=== PATIENT | male | born 1960 ===

== ENCOUNTER 2024-08-19 06:00 | Day surgery (SDC) | payer BC, SELFPAY ==
[2024-08-06 13:33] VITALS: BMI 33.0
[2024-08-19] VITALS (19 sets, daily range): BP systolic 73–165; BP diastolic 53–98; PULSE 64–143; RESP 10–19; TEMP 35.7–37.3; O2SAT 92–99; BMI 32.3
--- NOTE | 2024-08-19 | DI.RAD.S_ITS ---
PROCEDURE: [id number] W PEL IF PERFORMED INDICATIONS: ANTERIOR TOTAL LEFT HIP TECHNIQUE: AP pelvis with lateral view(s) of the left hip(s). COMPARISON: [facility], CR, XR HIP W PEL IF DONE LT 2V, 08/19/2024, 11:31. FINDINGS: Intraoperative images demonstrate a left hip total arthroplasty in progress. IMPRESSION: Left hip total arthroplasty in progress. Please see the operative report for further details. Dictated by: Isaías Saldaña M.D. on 08/19/2024 at 14:10 Approved by: Isaías Saldaña M.D. on 08/19/2024 at 14:11
--- NOTE | 2024-08-19 06:00 | DI.RAD.S_ITS ---
PROCEDURE: XR HIP W PEL IF DONE LT 2V INDICATIONS: DELONTE TECHNIQUE: AP pelvis and lateral view of the hip acquired. COMPARISON: [facility], CR, XR PELVIS WITH BILATERAL LATERAL HIPS, 04/18/2024, 16:36. [facility], CR, [id number] W PEL IF PERFORMED, 08/19/2024, 9:15. FINDINGS: Bones: Patient is status post left hip arthroplasty, with hardware components in expected positions. The hip joint appears congruent. The visualized bony structures appear intact. Right hip arthroplasty is stable. Soft tissues: Overlying postoperative changes are noted. No suspicious soft tissue densities. IMPRESSION: Expected post-operative appearance of a hip arthroplasty. Dictated by: Natalee Carbajal M.D. on 08/19/2024 at 12:00 Approved by: Natalee Carbajal M.D. on 08/19/2024 at 12:01
[2024-08-19] MEDS: VANCOMYCIN 1,000 MG/200 ML PIGGYBACK 200 MG IV (06:45)
[2024-08-19] MEDS: ACETAMINOPHEN 325 MG TABLET 975 MG PO (06:49)
[2024-08-19] MEDS: LACTATED RINGERS 1,000 ML 42 ML IV ×2 (06:50→12:25)
--- NOTE | 2024-08-19 07:35 | PM.PREOP ---
Pre-operative Note Interval Note History & Physical reviewed/Exam performed by Physician: Yes Changes to H&P: No
--- NOTE | 2024-08-19 07:37 | P.OP_ITS ---
Operative Date/Time/Diagnoses Date of procedure: 08/19/24 Time of procedure: 08:00 Pre-op diagnosis: left hip OA Post-op diagnosis: same Procedure & Clinicians Procedure: Left total hip arthroplasty anterior approach Same procedure as scheduled: Yes Indications: The patient has had progressively worsening left hip pain with radiographic herrera ges consistent with arthritis. Non-operative management has failed and the patient has requested total hip replacement. The risks, benefits and alternatives to surgery were discussed with the patient prior to proceeding. Risks discussed included, but were not limited to, failure to relieve pain, leg length discrepancy, dislocation, stiffness, infection, nerve damage, deep venous thrombosis, pulmonary embolism, stroke, coma, heart attack, permanent paralysis and , as well as the potential need for eventual revision of the prosthetic. Surgeon: Liya Carranza Assistant Professor Of Music: Raulito Dumont Anesthesia Type: General and Spinal Operative Notes Findings: Severe left hip OA, adequate stability Closure Type: primary Specimen(s): none sent Prosthetic devices, grafts, tissues, transplants, or devices: Carranza and nephew R3 size 52, neutral poly liner,one 6.5 mm screw, polar stem size 1 standard offset with collar, 36 x +0 femoral head Estimated Blood Loss (mL): 250 Blood products transfused: none Procedure in detail: The patient was brought to the operating room. Patient was carefully positioned in the supine position. Time-out was performed and antibiotics were given. Anesthesia was induced. He was positioned in the on the table in order to allow hyperextension of the hip. The left lower extremity was prepped and draped in a standard sterile fashion. An anterior left hip incision was made 1 fingerbreadth lateral to the anterior superior iliac spine and extended distally towards the greater trochanter. Dissection was carried out through skin and subcutaneous tissues. Superficial hemostasis was achieved. The fascia over the tensor fascia jose was defined and incised with a knife. Two Allis clamps were used to grasp the fascia. Tensor fascia jose was retracted laterally. A gelpi retractor was placed. Dissection was carried out down along the neck. The circumflex vessels were carefully identified and cauterized with the Aqua Mantis. A PA was used during the procedure and was essential for intraoperative retraction and safe implantation of the components. There was good visualization of the femoral neck. A Cobra was placed superior to the neck and the gluteus fibers were carefully stripped from that superior aspect of the capsule. A 2nd retractor was placed along the inferior aspect of the neck. The rectus insertion along the capsule was partially released. A 3rd retractor that was then gently placed over the rim of the acetabulum under the rectus. Capsule was carefully incised and released from the intertrochanteric line circumferentially superior to the mid sagittal line and inferiorly to the mid sagittal line until the lesser trochanter was palpable. A tag stitch was placed both in the superior and inferior limb of the capsular insertion. Along the acetabulum capsule was also released up to the mid sagittal 12:00 position. A portion of the labrum was resected. A saw was used to perform an osteotomy at the level of the intertrochanteric line and the junction of the superior femoral neck leaving approximately 1 finger breath of residual inferior neck above the lesser trochanter. A 2nd cut was made along the femoral neck at the base of the head and a napkin ring of neck was removed. Corkscrew was placed in the femoral head and the head was removed without difficulty. Retractors were then repositioned around the acetabulum. Residual labrum was resected and additional osteophytes were removed. A reamer that was 4 mm below the templated size was placed by hand in the acetabulum and it was reamed to centralize the acetabulum. It was then reamed up to 2 under the templated size and fluoroscopy was brought in to confirm the position of the reaming and depth of reaming. I reamed 1 under the anticipated size. A trial cup was placed and noted that it was appropriately sized and fluoroscopy confirmed position and depth. The component was open and inserted without difficulty fluoroscopic imaging was used to confirm that the cup had been adequately seated and was well positioned. It was further stabilized with a single screw. Neutral poly liner was placed. The cup was tested and noted to be stable. Attention was then directed to the femur. The femur was gently hyperextended additional capsular release was performed as needed in order to allow adequate visualization of the proximal femur with elevation of the femur. Patient was placed in a hyperextended slightly adducted position with maximum external rotation. Box osteotome was used to check for any residual neck as well as sclerotic bone along the trochanter. He had very dense bone and we went back and forth between the anthology in the polar in order to adequately prepped the femoral canal. [place] pepper was placed in the femur. Additional broaching was performed. Canal finder was used to determine the alignment of the canal and position. Size 1 broach was placed. The canal was then appropriately broached up to the templated size as long as there was adequate stability of the broach and serial advancement of the broach without excessive impingement. Specific attention was directed at avoiding varus attempting to direct the distal aspect of the broach more anteriorly and avoiding excessive anteversion. Trial reducti on showed acceptable range of motion, good stability, no posterior impingement, lutheran of leg length and appropriate lateral shuck. I also hyperflexed the hip and checked that there was no impingement anteriorly and there was good stability with flexion, adduction and internal rotation. A polar stem was selected. Marcaine and Exparel were injected. The stem was placed without difficulty. Repeat trial reduction and x-ray showed acceptable overall position, length, and no evidence of the femoral fracture. Final head was placed. Wound was meticulously irrigated with normal saline. The hip was reduced and additional Exparel and Marcaine were injected. The capsule was closed with interrupted nonabsorbable sutures. The fascia of the tensor was closed with interrupted and running Vicryl. No drain was placed. Any tensor fascia jose muscle that appeared to be contused or injured which was a minimal amount was carefully resected. Capsule around the tensor was injected with Exparel and Marcaine. The skin was closed with barbed stitches for the subcutaneous tissue and skin. We also used surgical glue. The wound was dressed sterilely. Brief Betadine soak was also used and was meticulously irrigated with normal saline. Patient was transferred to recovery room in satisfactory condition. Complications: none Post-operative Condition: stable Disposition: Acute Care Plan for aftercare: The patient will be maintained on a standard total hip replacement protocol with weight bearing as tolerated and anterior hip precautions. The patient will receive Coumadin and sequential compression devices for DVT prophylaxis. The patient will be discharged home when safe for the home environment.
[2024-08-19] MEDS: CEFAZOLIN 2 GM/100 ML PREMIX 100 ML IV ×3 (07:58→23:36)
[2024-08-19] MEDS: TRANEXAMIC ACID 1,000 MG VIAL 1000 MG INJ ×2 (08:10→10:46)
[2024-08-19] MEDS: BUPIVACAINE LIPOSOME 266 MG/20 ML VIAL INJ (08:45)
[2024-08-19] MEDS: BUPIVACAINE 0.25% (PF) 30 ML, EPINEPHrine 0.15 MG INJ (08:45)
--- NOTE | 2024-08-19 08:48 | SUR.OPER ---
Supine on padded [place] table with bilateral legs secured in padded positioning boots and suspended in positioning spars, operative leg in traction per surgeon. Head on one pillow. Arm on non-operative side secured on padded armboard <90 degrees abduction. Arm on operative side padded and resting across chest on gel pad then secured with tape over sheet. Padded perineal post in place per surgeon.
[2024-08-19] MEDS: ONDANSETRON 4 MG/2 ML INJ IV (11:37)
--- NOTE | 2024-08-19 11:53 | EKG_ITS ---
[place] [id number] [place] [id number] Test Date: 2024-08-19 Pat Name: Stevie Sanchez Department: Room: 221 Gender: Male Traffic Expert: Ramiro SANCHEZ : 1960 Requested By: Order Number: [id number] Reading MD: Burt Mott MD Measurements Intervals [place] Rate: 111 P: SD: QRS: -17 QRSD: 94 T: 44 QT: 342 QTc: 465 Interpretive Statements Atrial fibrillation with rapid ventricular response Nonspecific ST abnormality NO PRIOR TRACING Electronically Signed On 08-20-2024 6:48:44 PST by Burt Mott MD
[2024-08-19] MEDS: OXYCODONE IR 5 MG TABLET PO ×2 (11:54→12:16)
[2024-08-19] MEDS: dilTIAZem 25 MG/5 ML SDV 10 MG IV ×2 (11:59→12:04)
[2024-08-19 12:23] LABS: Add Manual Diff / Slide Review NO; Basophils Absolute Auto 0 /uL (0-100); Basophils Percent Auto 0.4 % (0-2); Eosinophils Absolute Auto 0 /uL (0-450); Hematocrit 40.7 % (41-53); Hemoglobin 14.2 g/dL (13.5-17.5); Lymphocytes Absolute Auto 400 /uL (1100-4500); Lymphocytes Percent Auto 3.9 % (25-40); Mean Corpuscular Hemoglobin 32.2 PG (26-34); Mean Corpuscular Volume 91.8 fL (80-100); Monocytes Absolute Auto 100 /uL (0-900); Neutrophils Absolute Auto 10500 /uL (1500-7000); Neutrophils Percent Auto 94.7 % (50-75); Platelet Count 202 X10^3/uL (150-400); Red Blood Cell Count 4.43 X10^6/uL (4.5-5.9); Red Cell Distribution Width 14.1 % (11.6-14.8); White Blood Cell Count 11.1 X10^3/uL (4.5-11.0)
[2024-08-19 12:40] LABS: Alanine Aminotransferase 28 IU/L (<50); Albumin 3.8 g/dL (3.5-5.0); Albumin Globulin Ratio 1.5 (1.0-2.8); Alkaline Phosphatase 80 U/L (38-126); Aspartate Aminotransferase 40 IU/L (17-59); Bilirubin Total 0.8 mg/dL (0.2-1.3); Blood Urea Nitrogen 15 mg/dL (9-20); Calcium 8.7 mg/dL (8.4-10.2); Carbon Dioxide 25 mmol/L (22-32); Chloride 104 mmol/L (98-107); Estimated Glomerular Filt Rate > 60 mL/min (>60); Globulin 2.6 g/dL (1.7-4.1); Glucose 150 mg/dL (80-110); HEMOLYSIS < 15 (0-50); Magnesium 1.8 mg/dL (1.6-2.3); Potassium 3.5 mmol/L (3.4-5.1); Sodium 136 mmol/L (137-145); Total Protein 6.4 g/dL (6.3-8.2)
[2024-08-19 12:46] LABS: INR 1.1 (0.9-1.3); Prothrombin Time 12.4 SECONDS (9.4-12.5)
[2024-08-19 12:52] LABS: Troponin I < 0.012 ng/mL (0.01-0.034)
--- NOTE | 2024-08-19 12:52 | PM.CN ---
History of Present Illness Consult details Date Patient Seen: 08/19/24 Time Patient Seen: 12:15 Chief complaint: Left DELONTE Reason for consult: atrial fibrillation with rapid ventricular response Narrative: This is a 64 year old male with PMH of CHEN, HTN, BPH, afib/flutter s/p PVI and CTI ablation 03/14/2024; DCCV 01/13/23, 07/30/22 on propafenone, diltiazem, and wafarin who follows with Dr. Harding at [facility] who underwent left total hip arthroplasty today with orthopedic surgery. Was called to the PACU today for afib with RVR and chest discomfort. Arrived and patient was in afib RVR with a rate of approximately 120, given 10 mg of diltiazem IV by anesthesia with slight improvement in rate to 110. He complained of palpitations, mild chest discomfort / burning sensation. The discomfort was substernal and non-radiating, consistent with prior episodes of RVR he states. He did take his home diltiazem this morning, along with his propafenone. He has been off of his warfarin prior to surgery. Labs showed a potassium of 3.5, Mg 1.8, and an undetectable troponin. He had received 2L of fluid thus far, 3rd L pending.Labs are otherwise unremarkable. He did convert to sinus rhythm on the monitor shortly after arrival to the hospital floor. Meds Home Medications and Allergies Home Medications Medication Instructions Recorded Confirmed Type acetaminophen 325 mg tablet 650 mg PO DAILY 08/13/24 08/19/24 History (Tylenol) atorvastatin 40 mg tablet 40 mg PO DAILY 08/13/24 08/19/24 History chlorthalidone 25 mg tablet 25 mg PO DAILY 08/13/24 08/19/24 History diltiazem HCl 180 mg 180 mg PO DAILY 08/13/24 08/19/24 History capsule,extended release 24 hr (Cartia XT) lisinopril 40 mg tablet 40 mg PO DAILY 08/13/24 08/19/24 History potassium chloride 20 mEq 40 meq PO DAILY 08/13/24 08/19/24 History tablet,extended release(part/cryst) propafenone 225 mg 225 mg PO Q12H 08/13/24 08/19/24 History capsule,extended release 12 hr terazosin 5 mg capsule 5 mg PO DAILY 08/13/24 08/19/24 History warfarin 5 mg tablet 5 mg PO DAILY 08/13/24 08/19/24 History Allergies Allergy/AdvReac Type Severity Reaction Status Date / Time ketamine AdvReac Hallucinati Verified 08/19/24 06:35 ng Sulfa (Sulfonamide AdvReac Years Verified 08/19/24 06:35 Antibiotics) ago-unsure Review of Systems Review of Systems Narrative: All other systems reviewed with the patient and are negative unless otherwise stated. Exam Vital Signs (past 8 hours): - 08/19/24 06:56 08/19/24 11:20 08/19/24 11:25 Temperature 97.7 F 99.2 F Pulse Rate 76 93 H 111 H Respiratory Rate 16 10 L 12 Blood Pressure 165/87 H 73/53 L 97/69 Pulse Oximetry 96 94 Oxygen Delivery Method Room Air Room Air Room Air 08/19/24 11:30 08/19/24 11:35 08/19/24 11:40 Temperature Pulse Rate 107 H 100 H 98 H Respiratory Rate 12 12 11 L Blood Pressure 91/69 92/68 116/81 Pulse Oximetry 96 98 98 Oxygen Delivery Method Room Air Room Air Room Air 08/19/24 11:45 08/19/24 11:54 08/19/24 12:00 Temperature Pulse Rate 120 H 120 H 129 H Respiratory Rate 12 12 19 Blood Pressure 112/80 119/70 103/83 Pulse Oximetry 98 96 94 Oxygen Delivery Method Room Air Room Air Room Air 08/19/24 12:04 08/19/24 12:08 08/19/24 12:18 Temperature Pulse Rate 120 H 98 H 71 Respiratory Rate 16 10 L Blood Pressure 103/83 105/78 119/95 H Pulse Oximetry 95 99 Oxygen Delivery Method Room Air Room Air 08/19/24 12:22 Temperature Pulse Rate 86 Respiratory Rate 16 Blood Pressure 109/85 Pulse Oximetry 99 Oxygen Delivery Method Room Air Oxygen Delivery Method Room Air Narrative Exam Narrative: General:? Patient is well developed and well nourished, in no distress at this time. HEENT:? Normocephalic, atraumatic, extraocular muscles intact, oral pharynx is clear and mucous membranes are moist. Neck: supple and symmetric, trachea is midline, no cervical adenopathy. Negative for JVD Chest:? Normal AP diameter and contour without kyphoscoliosis, no tachypnea, equal chest rise bilaterally. Lungs:? CTA b/l no wheezing rhonchi or rales. Cardio:?initially tachycardic, irregularly irregular then RRR no m/r/g. Abdomen: S NT ND. Extremities: No edema or joint effusions. No cyanosis or clubbing. Neuro:? Alert and orientated x3,? sensation to touch intact in all extremities, no gross deficits noted of cranial nerves. Objective ECG Impression: Atrial fibrillation with rapid ventricular response, nonspecific ST depression in lead V4 only. Labs 08/19/24 12:07 08/19/24 12:07 Labs: Laboratory Results - last 24 hr 08/19/24 12:07 WBC 11.1 H RBC 4.43 L Hgb 14.2 Hct 40.7 L MCV 91.8 MCH 32.2 MCHC 35.0 RDW 14.1 Plt Count 202 Neut % (Auto) 94.7 H Lymph % (Auto) 3.9 L [place] % (Auto) 1.0 L Eos % (Auto) 0.0 L Baso % (Auto) 0.4 Neut # (Auto) 21029 H Lymph # (Auto) 400 L [place] # (Auto) 100 Eos # (Auto) 0 Baso # (Auto) 0 PT 12.4 INR 1.1 Sodium 136 L Potassium 3.5 Chloride 104 Carbon Dioxide 25 BUN 15 Creatinine 0.79 Estimated GFR > 60 BUN/Creatinine Ratio 19.0 Glucose 150 H Calcium 8.7 Magnesium 1.8 Total Bilirubin 0.8 AST 40 ALT 28 Alkaline Phosphatase 80 Total Protein 6.4 Albumin 3.8 Globulin 2.6 Albumin/Globulin Ratio 1.5 PFSH Medical History (Updated 08/13/24 @ 14:00 by Julianna Diego RN) Normal cardiac ejection fraction Heart murmur A-fib (2015) History of anticoagulant therapy CHEN on CPAP History of chest pain History of cardioversion (07/30/22) Paroxysmal atrial fibrillation BPH (benign prostatic hyperplasia) HTN (hypertension) Surgical History (Updated 08/06/24 @ 13:43 by Rand Cerrato RN) Hx of tonsillectomy Hx of colonoscopy History of lumbar laminectomy (1984) History of total right hip replacement (09/2011) History of carpal tunnel surgery of left wrist (2010) H/O cardiac radiofrequency ablation (03/14/24) Social History household members: children Tobacco & Substance Use Smoking Status: Never smoker alcohol intake: current Assessment & Plan Assessment & Plan narrative: 1. Paroxysmal atrial fibrillation with RVR, improved - continue home diltiazem 180 mg daily and propafenone 225 mg BID for now - monitor with tele, converted to sinus rhythm shortly after arrival to hospital floor. - ACS ruled out, negative troponin, improvement in symptoms with rate control, EKG with non-specific changes. - Previous stress testing 01/02/23 was normal at [facility]. Last TTE 01/07 was EF 60-65% with no valvular abnormalities. - replete Mg and potassium, goal Mg >2 and potassium level of 4. Ordered 60 of potassium repletion and 2g Mg repletion now. - coumadin per pharmacy once okay per orthopedics team. - suspect combination of volume loss from surgery, and electrolyte abnormalities. now s/p 3L of fluid boluses with improvement. 2. CHEN - management with respiratory therapy. 3. HTN - continue home medications of chlorthalidone, diltiazem, and lisinopril. 4 HLD - continue home atorvastatin 40 mg. 5. Hypomagnesemia, and hypokalemia - repleted as noted above - continue home potassium 40 meQ daily. 6. S/p L total arthroplasty - PT/OT okay to start Code: Full, surrogate is patient's daughter DVT: per primary service, resume patient's warfarin per orthopedics team I have utilized all available immediate resources to obtain, update, or review the patient's current medications. Dispo: stable for hospital floor, medicine will continue to follow along at this time. Additional history obtained via discussions with the orthopedic provider, anesthesiologist, and PACU staff. These discussions contributed to the creation of the above assessment and plan. I have reviewed patient's presenting documentation, labs, and imaging personally. Time-Based Coding :: [TOTAL MINUTES] spent with patient and on the chart (including review of chart, obtaining history, exam, reviewing outside data, placing orders, documenting exam and treatment plan, and counseling patient) on [DATE].
[2024-08-19] MEDS: MAGNESIUM SULFATE 2 GM/50 ML PIGGYBACK IV (13:31)
[2024-08-19] MEDS: ACETAMINOPHEN 325 MG TABLET 650 MG PO (13:31)
[2024-08-19] MEDS: LACTATED RINGERS 1,000 ML 100 ML IV ×2 (13:31→18:31)
[2024-08-19] MEDS: POTASSIUM CHLORIDE 20 MEQ TAB 60 MEQ PO (13:31)
--- NOTE | 2024-08-19 15:32 | OT.IP.EVAL ---
Current Diagnoses Unilateral primary osteoarthritis, left hip (08/19/24) Surgery Performed Operation Date: 08/19/24 07:45 Actual Procedures p Total Hip Arthroplasty/Anterior Approach(Left) - Liya Carranza MD Past Medical History (Last Updated 08/13/24 @ 14:00 by Julianna Diego, ROMERO) A-fib (2015) BPH (benign prostatic hyperplasia) Heart murmur History of anticoagulant therapy History of cardioversion (07/30/22) History of chest pain HTN (hypertension) Normal cardiac ejection fraction CHEN on CPAP Paroxysmal atrial fibrillation Surgical History (Last Updated 08/06/24 @ 13:43 by Rand Cerrato, ROMERO) H/O cardiac radiofrequency ablation (03/14/24) History of carpal tunnel surgery of left wrist (2010) History of lumbar laminectomy (1984) 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 Activities of Daily Living and IADL's Pt had pain but able to do ADl and IADl needs. Prior Functional Level (Other details) Pt's daughter in the room, his son to assist pt at home. Social History Household Members children Living Arrangements House Number of Floors (Floors) One Floor Number of Stairs To Enter/Railing? 3 steps with left hand rail to enter. Home Environment Standard Height Toilet,Tub/ Shower Home Equipment Front Wheel Walker,Straight Cane,Crutches,Hand Held Shower ,Dietetics Professor M2 OT-IP Current Condition Start: 08/19/24 15:32 Freq: Status: Active Protocol: Document 08/19/24 15:33 [facility] (Rec: 08/19/24 15:44 [facility] [id number]) Occupational Therapy Current Condition Current Condition Evaluation Date 08/19/24 Treatment Diagnosis S/P L DELONTE anterior approach Diagnosis Onset Date 08/19/24 Post Operative Precautions Anterior Hip Precautions No excessive Hip Extension and Hip External Rotation Other Precautions M3 OT- IP Subjective and Pain Start: 08/19/24 15:32 Freq: Status: Active Protocol: Document 08/19/24 15:33 [facility] (Rec: 08/19/24 15:44 [facility] [id number]) OT- Subjective Occupational Therapy Visit Type Type Initial Evaluation Visit Start Time 15:05 Visit Stop Time 15:32 Occupational Therapy Visit Comments Patient Comments Pt agreed to get up. Patient/Caregiver Goals TO go home. OT Pain Assessment Pain When Pain Assessed At Rest Pain Present Pain Present Pain Reported Location left hip Intensity 4 Scale Used Numeric (0 - 10) M4 OT- IP ADL's Start: 08/19/24 15:32 Freq: Status: Active Protocol: Document 08/19/24 15:33 [facility] (Rec: 08/19/24 15:44 [facility] [id number]) OT [id number] Comments OT Self-Feeding Comments Not performed. OT ADL-Grooming Comments OT Grooming Comments Not performed. OT ADL-Oral Care Comments Oral Care Comments NOt performed. OT ADL-Dressing General Eval Lower Body Dressing Ability Maximum Assistance Comments OT Dressing Comments Showed pt LB dressing equipment and the importance on not crossing his LLE over into external rotation for clothing management needs. OT ADL-Toileting Comments OT Toileting Comments Suggested use of urinal at night. OT ADL-Bathing Comments OT Bathing Comments Best to get a tub bench for home use. M5 OT- IP IADL's Start: 08/19/24 15:32 Freq: Status: Active Protocol: Document 08/19/24 15:33 [facility] (Rec: 08/19/24 15:44 [facility] [id number]) OT-Instrumental Activities of Daily Living Home Safety Awareness Awareness of Need for Assistance at Home Good Awareness Ability to Problem Solve Emergency Able to Problem Solve Situations Home Safety Comments Pt has supportive family to assist pt. Best to have assist for needs at this time. Meal Preparation Meal Preparation Caregiver Provides Assist Healthcare Applications Analyst Healthcare Applications Analyst Caregiver Provides Assist M6 OT- IP Functional Cognition Start: 08/19/24 15:32 Freq: Status: Active Protocol: Document 08/19/24 15:33 [facility] (Rec: 08/19/24 15:44 [facility] [id number]) Cognitive Factors Limiting Selfcare Function Cognitive Ability Level of Alertness Alert Patient Orientation Name,Place,Situation Attention Span Ability Capable of Focused Attention, Capable of Sustained Attention Ability to Follow Commands Able to Follow One Step Commands Cognitive Comments Cognitive Assessment Comments Pt able to follow cues for ADL and mobility needs at this time. OT- Vision and Hearing OT- Hearing Assessment OT- Hearing Assessment WFL OT- Vision Assessment Visual Acuity Glasses All The Time Visual Attentiveness WFL Occular Pursuits WFL M7 OT- IP Mobility and Balance Start: 08/19/24 15:32 Freq: Status: Active Protocol: Document 08/19/24 15:33 [facility] (Rec: 08/19/24 15:44 [facility] [id number]) OT- Bed Mobility Assessment Supine to Sit Supine to Sit Assist Contact Guard Assistance Scooting Scooting to Edge of Bed Standby Assistance OT-Transfer Assessment Sit to and From Stand Sit to and from Stand Contact Guard Assistance Transfers Transfer Ability Contact Guard Assistance Technique Transfer Destination Bed,Chair Transfer Technique Stand Step Pivot Devices Transfer Assistive Devices Gait Belt,Front Wheeled Walker Comments Mobility Comments BP supine 137/75, sitting 105/ 66 feeling a little light headed, standing 87/52, after transfer to recliner 89/52 and sitting with legs up 132/67. Pt wanting to get out on the right side of the bed as that is how it is set at home. CGA to help get his trunk upright. CGA to stand and from the transfer. VC to be sure to keep his LLE tight. Pt just transfer only at this time due to low BP.Pt states good awareness to call for assist if having to get up. OT- Balance Assessment Sitting Balance and Reactions Static Sitting Balance Ability Good Dynamic Sitting Balance Ability Good Standing Balance and Reactions Static Standing Balance Ability Fair Dynamic Standing Balance Ability Fair M8 OT- IP Objective Assessments Start: 08/19/24 15:32 Freq: Status: Active Protocol: Document 08/19/24 15:33 [facility] (Rec: 08/19/24 15:44 [facility] [id number]) OT Gross Range of Motion Upper Extremity Range of Motion Assessment Within Functional Limits OT Strength Upper Extremity Strength Assessment Within Functional Limits M9 OT- IP Assessment and Plan Start: 08/19/24 15:32 Freq: Status: Active Protocol: Document 08/19/24 15:33 [facility] (Rec: 08/19/24 15:44 [facility] [id number]) OT Summary Assessment and Plan Potential Rehabilitation Potential Excellent Analytic Complexity at Evaluation Low Summary OT Impairments Pain,Balance,Functional Mobility,Grooming,Dressing, Toileting,Bathing,Toilet Transfers,Shower Transfers Progress Towards Goals Slow Progress due to Pain,Slow Progress due to Medical Issues Assessment Summary Pt low complexity and main barriers are steps, pain , and having low BP and complaining of begin light headed when sitting and standing at this time. Pt looking to go home with assist when medically stable. Pt will benefit from a tub bench and sock aid. Goals Self-Feeding Goal Independent Grooming Goal Independent Dressing Goal Independent,Dietetics Professor,Sock Aid Toileting Goal Independent Bathing Goal Standby Assistance Toilet Transfer Goal Independent Shower Transfer Goal Standby Assistance Days to Meet Goals 7 Frequency of Treatment Frequency Of Treatment Once a Day Treatment Plan OT Treatment Plan ADL Training,Functional Mobility,Patient/Family Education,Discharge Planning Other Treatment Recommendations and Next Standing ADL's Treatment Focus Discharge Recommendations OT Discharge Recommendations Home with 09/04 Assist Available,Outpatient PT Home Equipment Needs tub bench, sock aid Transportation Needs at Discharge Private Vehicle
--- NOTE | 2024-08-19 15:45 | PT.IIE ---
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) Hx of colonoscopy Hx of tonsillectomy Medical History (Last Updated 08/13/24 @ 14:00 by Julianna Diego, ROMERO) A-fib (2015) BPH (benign prostatic hyperplasia) Heart murmur History of anticoagulant therapy History of cardioversion (07/30/22) History of chest pain HTN (hypertension) Normal cardiac ejection fraction CHEN on CPAP Paroxysmal atrial fibrillation Physical Therapy Inpatient Evaluation/Re-Eval M1 PT/OT-IP Prior Functional Status Start: 08/19/24 16:42 Freq: NEEDED Status: Active Protocol: Document 08/19/24 15:45 [facility] (Rec: 08/19/24 16:54 [facility] [id number]) Medical Review Prior Functional Status Medical History Reviewed Yes Communication able to make needs known Mobility and Gait pt stated that he was modified independent with all mobilities and ambulation usually without AD; initially uses a SPC for ambulation in the morning due to hip pain but after a few feet of walking was able to ambulation without AD Activities of Daily Living and IADL's per OT note: Pt had pain but able to do ADl and IADl needs. Social History Household Members children Living Arrangements House Number of Floors (Floors) One Floor Number of Stairs To Enter/Railing? 3 steps with left hand rail to enter Home Environment Standard Height Toilet,Tub/ Shower Home Equipment Front Wheel Walker,Straight Cane,Crutches,Hand Held Shower ,Peer Financial Counselor Additional Social History Comment pt lives with his son who can assist when available( son works); pt stated that his GF will stay with him tomorrow when he goes home M2 PT-IP Current Condition Start: 08/19/24 16:42 Freq: NEEDED Status: Active Protocol: Document 08/19/24 15:45 [facility] (Rec: 08/19/24 16:54 AB [id number]) Physical Therapy Current Condition Current Condition Evaluation Date 08/19/24 Treatment Diagnosis s/p L DELONTE anterior; difficulty in walking Onset Date 08/19/24 M3 PT-IP Subjective Start: 08/19/24 16:42 Freq: NEEDED Status: Active Protocol: Document 08/19/24 15:45 [facility] (Rec: 08/19/24 16:54 AB [id number]) Subjective Physical Therapy Visit Type Type Initial Evaluation Visit Start Time 15:45 Visit Stop Time 16:25 Number of DATA MANAGEMENT CONSULTANT Visits 0 Physical Therapy Visit Comments Patient Comments agreeable to do PT Therapy Pain Assessment Pain When Pain Assessed At Rest Pain Present Pain Present Pain Reported Location left hip Intensity 3 Scale Used Numeric (0 - 10) Pain Behaviors Guarding Pain Management Techniques Apply Cold,Distraction, Modification of Treatment,Re- positioning,Timing of Activity with Medications M4 PT-IP Mobility and Gait Start: 08/19/24 16:42 Freq: NEEDED Status: Active Protocol: Document 08/19/24 15:45 [facility] (Rec: 08/19/24 16:54 [facility] [id number]) PT-Bed Mobility Assessment Rolling Level of Assist Standby Assistance Supine to Sit Supine to Sit Standby Assistance Sit to Supine Sit to Supine Standby Assistance PT-Transfer Assessment Sit to and From Stand Sit to and from Stand Contact Guard Assistance,1 Person Assistance,Use of Upper Extremities Equipment Transfer Assistive Device Gait Belt,Front Wheeled Walker Orthotic/Prosthetic Devices or Brace: No Transfers Transfer Destination Bed,Chair Transfer Technique ambulated Transfer Ability Level of Assist Contact Guard Assistance,1 Person Assistance,Use of Upper Extremities Comments Mobility Comments pt sitting on the chair and agreed to do PT. obtained PLOF and home set up. educated pt on hip precautions. BP sittin/69. pt completed sit to stand CGA and ambulated in room using FWW cGA ~ 30 ft. no c/o dizziness/ lightheadedness. pt sat on EOB. BP checked: 126/68. completed bed mobility sit <> supine SBA. pt completed sit to stand from EOB CGA and step transfer back to chair using FWW CGA. positioned pt on the chair. call light and table placed within reach. Gait Assessment Gait Gait Assistance Required: Contact Guard Assist Distance (Feet) 30 Able to Maintain Weight Bearing Status Yes During Gait Assistive Devices Assistive Device Gait Belt,Front Wheeled Walker Orthotic/Prosthetic Devices or Brace: No Gait Deviations General Gait Pattern Decreased Stride Length, Decreased Feet Clearance Factors Limiting Gait Function Factors Limiting Gait Function Decreased Activity Tolerance, Decreased Strength,Limited Range of Motion,Pain,Poor Balance,Poor Safety Awareness PT-Balance Assessment Sitting Balance and Reactions Static Sitting Balance Ability Normal Dynamic Sitting Balance Ability Good Standing Balance and Reactions Static Standing Balance Ability Good Dynamic Standing Balance Ability Fair Device Used FWW M5 PT-IP Objective Assessments Start: 08/19/24 16:42 Freq: NEEDED Status: Active Protocol: Document 08/19/24 15:45 [facility] (Rec: 08/19/24 16:54 [facility] [id number]) Orientation Orientation/Cognition Level of Alertness Alert Orientation Name,Place,Situation Language Function Ability Hard of Hearing Safety Awareness Decreased Safety Awareness Memory Description No Deficits Noted Gross Range of Motion Lower Extremity ROM Assessment Within Functional Limits Strength Lower Extremity Strength Assessment Left Impaired Hip 3+/5 Knee 4/5 Coordination Assessment Gross Coordination Gross Coordination WNL Sensation Assessment Sensation Gross Sensation WNL Muscle Tone Muscle Tone WNL Yes M6 PT-IP Treatment Start: 08/19/24 16:42 Freq: NEEDED Status: Active Protocol: Document 08/19/24 15:45 [facility] (Rec: 08/19/24 16:54 [facility] [id number]) Physical Therapy Treatment Education Education Provided Precautions,Weight Bearing Status,Post-Op Packet,Safety M7 PT-IP Assessment and Plan Start: 08/19/24 16:42 Freq: NEEDED Status: Active Protocol: Document 08/19/24 15:45 [facility] (Rec: 08/19/24 16:54 AB [id number]) PT Summary Assessment and Plan Potential Rehabilitation Potential Fair Status of Condition at Evaluation Evolving Summary Impairments Pain,ROM,Strength,Balance, Coordination,Sensation,Tone, Cognition,Bed Mobility, Transfers,Gait,Activity Tolerance Assessment Summary pt is a 64 y/o M s/p L DELONTE anterior approach POD 0. pt requiring CGA with mobility using fWW. pt plans to go home and GF with initially assist pt and then afterwards, will have his son assist him if needed. pt has outpt PT set up. will conduct caregiver training when appropriate as well as stair climbing training. Goals Bed Mobility Goal Independent Transfer Goal Independent,Front Wheeled Walker Gait Goal Independent,Front Wheel Walker Gait Distance 200 Other Goals up/down 3 steps L rail ascending SBA Days to Meet Goals 5 Frequency of Treatment Frequency Of Treatment Twice a Day Treatment Plan Physical Therapy Treatment Plan Bed Mobility Training,Transfer Training,Gait Training, Therapeutic Exercise,Balance Retraining,Post Op Education, Discharge Planning,Hot or Cold Pack,Neuromuscular Re-ed, Coordination Retraining,Manual Therapy Precautions Anterior Hip Precautions No Hip Extension,No Hip External Rotation Weight Bearing Status Weight Bearing Status Weight Bear as Tolerated Allowed Weight Bearing Amount (enter % LLE WBAT or #) (%) Recommendations To Nursing Amount of Assist Needed 1 Person Assist Discharge Recommendations PT Discharge Recommendations Home with Assistance, Outpatient PT Transportation Needs at Discharge Private Vehicle
--- NOTE | 2024-08-19 15:55 | PT.IIE ---
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) Hx of colonoscopy Hx of tonsillectomy Medical History (Last Updated 08/13/24 @ 14:00 by Julianna Diego, ROMERO) A-fib (2015) BPH (benign prostatic hyperplasia) Heart murmur History of anticoagulant therapy History of cardioversion (07/30/22) History of chest pain HTN (hypertension) Normal cardiac ejection fraction CHEN on CPAP Paroxysmal atrial fibrillation Physical Therapy Inpatient Evaluation/Re-Eval M1 PT/OT-IP Prior Functional Status Start: 08/19/24 16:42 Freq: NEEDED Status: Active Protocol: Document 08/19/24 15:55 [facility] (Rec: 08/19/24 16:54 AB [id number]) Medical Review Prior Functional Status Medical History Reviewed Yes Communication able to make needs known Mobility and Gait pt stated that he was modified independent with all mobilities and ambulation usually without AD; initially uses a SPC for ambulation in the morning due to hip pain but after a few feet of walking was able to ambulation without AD Activities of Daily Living and IADL's per OT note: Pt had pain but able to do ADl and IADl needs. Social History Household Members children Living Arrangements House Number of Floors (Floors) One Floor Number of Stairs To Enter/Railing? 3 steps with left hand rail to enter Home Environment Standard Height Toilet,Tub/ Shower Home Equipment Front Wheel Walker,Straight Cane,Crutches,Hand Held Shower ,Business Intelligence Analyst Additional Social History Comment pt lives with his son who can assist when available( son works); pt stated that his GF will stay with him tomorrow when he goes home M2 PT-IP Current Condition Start: 08/19/24 16:42 Freq: NEEDED Status: Active Protocol: Document 08/19/24 15:55 [facility] (Rec: 08/19/24 16:54 AB [id number]) Physical Therapy Current Condition Current Condition Evaluation Date 08/19/24 Treatment Diagnosis s/p L DELONTE anterior; difficulty in walking Onset Date 08/19/24 M3 PT-IP Subjective Start: 08/19/24 16:42 Freq: NEEDED Status: Active Protocol: Document 08/19/24 15:55 [facility] (Rec: 08/19/24 16:54 AB [id number]) Subjective Physical Therapy Visit Type Type Initial Evaluation Visit Start Time 15:55 Visit Stop Time 16:30 Number of WARP TENSION TESTER Visits 0 Physical Therapy Visit Comments Patient Comments agreeable to do PT Therapy Pain Assessment Pain When Pain Assessed At Rest Pain Present Pain Present Pain Reported Location left hip Intensity 3 Scale Used Numeric (0 - 10) Pain Behaviors Guarding Pain Management Techniques Apply Cold,Distraction, Modification of Treatment,Re- positioning,Timing of Activity with Medications M4 PT-IP Mobility and Gait Start: 08/19/24 16:42 Freq: NEEDED Status: Active Protocol: Document 08/19/24 15:55 [facility] (Rec: 08/19/24 16:54 AB [id number]) PT-Bed Mobility Assessment Rolling Level of Assist Standby Assistance Supine to Sit Supine to Sit Standby Assistance Sit to Supine Sit to Supine Standby Assistance PT-Transfer Assessment Sit to and From Stand Sit to and from Stand Contact Guard Assistance,1 Person Assistance,Use of Upper Extremities Equipment Transfer Assistive Device Gait Belt,Front Wheeled Walker Orthotic/Prosthetic Devices or Brace: No Transfers Transfer Destination Bed,Chair Transfer Technique ambulated Transfer Ability Level of Assist Contact Guard Assistance,1 Person Assistance,Use of Upper Extremities Comments Mobility Comments pt sitting on the chair and agreed to do PT. obtained PLOF and home set up. educated pt on hip precautions. BP sittin/69. pt completed sit to stand CGA and ambulated in room using FWW cGA ~ 30 ft. no c/o dizziness/ lightheadedness. pt sat on EOB. BP checked: 126/68. completed bed mobility sit <> supine SBA. pt completed sit to stand from EOB CGA and step transfer back to chair using FWW CGA. positioned pt on the chair. call light and table placed within reach. Gait Assessment Gait Gait Assistance Required: Contact Guard Assist Distance (Feet) 30 Able to Maintain Weight Bearing Status Yes During Gait Assistive Devices Assistive Device Gait Belt,Front Wheeled Walker Orthotic/Prosthetic Devices or Brace: No Gait Deviations General Gait Pattern Decreased Stride Length, Decreased Feet Clearance Factors Limiting Gait Function Factors Limiting Gait Function Decreased Activity Tolerance, Decreased Strength,Limited Range of Motion,Pain,Poor Balance,Poor Safety Awareness PT-Balance Assessment Sitting Balance and Reactions Static Sitting Balance Ability Normal Dynamic Sitting Balance Ability Good Standing Balance and Reactions Static Standing Balance Ability Good Dynamic Standing Balance Ability Fair Device Used FWW M5 PT-IP Objective Assessments Start: 08/19/24 16:42 Freq: NEEDED Status: Active Protocol: Document 08/19/24 15:55 [facility] (Rec: 08/19/24 16:54 AB [id number]) Orientation Orientation/Cognition Level of Alertness Alert Orientation Name,Place,Situation Language Function Ability Hard of Hearing Safety Awareness Decreased Safety Awareness Memory Description No Deficits Noted Gross Range of Motion Lower Extremity ROM Assessment Within Functional Limits Strength Lower Extremity Strength Assessment Left Impaired Hip 3+/5 Knee 4/5 Coordination Assessment Gross Coordination Gross Coordination WNL Sensation Assessment Sensation Gross Sensation WNL Muscle Tone Muscle Tone WNL Yes M6 PT-IP Treatment Start: 08/19/24 16:42 Freq: NEEDED Status: Active Protocol: Document 08/19/24 15:55 [facility] (Rec: 08/19/24 16:54 AB [id number]) Physical Therapy Treatment Education Education Provided Precautions,Weight Bearing Status,Post-Op Packet,Safety M7 PT-IP Assessment and Plan Start: 08/19/24 16:42 Freq: NEEDED Status: Active Protocol: Document 08/19/24 15:55 [facility] (Rec: 08/19/24 16:54 AB [id number]) PT Summary Assessment and Plan Potential Rehabilitation Potential Fair Status of Condition at Evaluation Evolving Summary Impairments Pain,ROM,Strength,Balance, Coordination,Sensation,Tone, Cognition,Bed Mobility, Transfers,Gait,Activity Tolerance Assessment Summary pt is a 64 y/o M s/p L DELONTE anterior approach POD 0. pt requiring CGA with mobility using fWW. pt plans to go home and GF with initially assist pt and then afterwards, will have his son assist him if needed. pt has outpt PT set up. will conduct caregiver training when appropriate as well as stair climbing training. Goals Bed Mobility Goal Independent Transfer Goal Independent,Front Wheeled Walker Gait Goal Independent,Front Wheel Walker Gait Distance 200 Other Goals up/down 3 steps L rail ascending SBA Days to Meet Goals 5 Frequency of Treatment Frequency Of Treatment Twice a Day Treatment Plan Physical Therapy Treatment Plan Bed Mobility Training,Transfer Training,Gait Training, Therapeutic Exercise,Balance Retraining,Post Op Education, Discharge Planning,Hot or Cold Pack,Neuromuscular Re-ed, Coordination Retraining,Manual Therapy Precautions Anterior Hip Precautions No Hip Extension,No Hip External Rotation Weight Bearing Status Weight Bearing Status Weight Bear as Tolerated Allowed Weight Bearing Amount (enter % LLE WBAT or #) (%) Recommendations To Nursing Amount of Assist Needed 1 Person Assist Discharge Recommendations PT Discharge Recommendations Home with Assistance, Outpatient PT Transportation Needs at Discharge Private Vehicle
[2024-08-19] MEDS: OXYCODONE IR 10 MG TABLET PO (18:37)
[2024-08-19] MEDS: PROPAFENONE 225 MG 225 EACH PO (21:53)
[2024-08-19] MEDS: DOCUSATE 100 MG CAPSULE PO (21:53)
[2024-08-20 00:35] VITALS: BP 135/71; PULSE 62; RESP 15; TEMP 36.2; O2SAT 97
[2024-08-20] MEDS: ACETAMINOPHEN 325 MG TABLET 650 MG PO ×2 (00:48→10:46)
[2024-08-20 05:58] LABS: BUN Creatinine Ratio 17.6 (6-22); Blood Urea Nitrogen 15 mg/dL (9-20); Calcium 8.5 mg/dL (8.4-10.2); Carbon Dioxide 28 mmol/L (22-32); Chloride 103 mmol/L (98-107); Estimated Glomerular Filt Rate > 60 mL/min (>60); Glucose 155 mg/dL (80-110); HEMOLYSIS < 15 (0-50); Potassium 3.7 mmol/L (3.4-5.1); Sodium 135 mmol/L (137-145)
--- NOTE | 2024-08-20 07:33 | PM.PN.1 ---
Subjective Subjective Interval history: Summary: Chief complaint: Left DELONTE Reason for consult: atrial fibrillation with rapid ventricular response Narrative: This is a 64 year old male with PMH of CHEN, HTN, BPH, afib/flutter s/p PVI and CTI ablation 03/14/2024; DCCV 01/13/23, 07/30/22 on propafenone, diltiazem, and wafarin who follows with Dr. Harding at [facility] who underwent left total hip arthroplasty today with orthopedic surgery. Was called to the PACU today for afib with RVR and chest discomfort. Arrived and patient was in afib RVR with a rate of approximately 120, given 10 mg of diltiazem IV by anesthesia with slight improvement in rate to 110. He complained of palpitations, mild chest discomfort / burning sensation. The discomfort was substernal and non-radiating, consistent with prior episodes of RVR he states. He did take his home diltiazem this morning, along with his propafenone. He has been off of his warfarin prior to surgery. Labs showed a potassium of 3.5, Mg 1.8, and an undetectable troponin. He had received 2L of fluid thus far, 3rd L pending.Labs are otherwise unremarkable. He did convert to sinus rhythm on the monitor shortly after arrival to the hospital floor. S: No racing heart, dyspnea, or chest pain. Exam Vital Signs (past 8 hours): - 08/20/24 00:35 Temperature 97.2 F L Pulse Rate 62 Respiratory Rate 15 Blood Pressure 135/71 Pulse Oximetry 97 Oxygen Delivery Method Room Air Oxygen Flow Rate 0 Narrative Exam Narrative: NAD, alert and oriented. Fluent speech. Lungs are clear, normal rate and effort. Heart is regular, no murmur gallop or rub. Abdomen is soft, non distended. Extremities are free of edema. Objective Labs 08/20/24 04:39 08/20/24 04:39 Labs: Laboratory Results - last 24 hr 08/19/24 08/20/24 12:07 04:39 WBC 11.1 H RBC 4.43 L Hgb 14.2 13.0 L Hct 40.7 L 37.0 L MCV 91.8 MCH 32.2 MCHC 35.0 RDW 14.1 Plt Count 202 Neut % (Auto) 94.7 H Lymph % (Auto) 3.9 L [place] % (Auto) 1.0 L Eos % (Auto) 0.0 L Baso % (Auto) 0.4 Neut # (Auto) 12885 H Lymph # (Auto) 400 L [place] # (Auto) 100 Eos # (Auto) 0 Baso # (Auto) 0 PT 12.4 INR 1.1 Sodium 136 L 135 L Potassium 3.5 3.7 Chloride 104 103 Carbon Dioxide 25 28 BUN 15 15 Creatinine 0.79 0.85 Estimated GFR > 60 > 60 BUN/Creatinine Ratio 19.0 17.6 Glucose 150 H 155 H Calcium 8.7 8.5 Magnesium 1.8 2.0 Total Bilirubin 0.8 AST 40 ALT 28 Alkaline Phosphatase 80 Troponin I < 0.012 Total Protein 6.4 Albumin 3.8 Globulin 2.6 Albumin/Globulin Ratio 1.5 [facility] Medical History Normal cardiac ejection fraction Heart murmur A-fib (2015) History of anticoagulant therapy CHEN on CPAP History of chest pain History of cardioversion (07/30/22) Paroxysmal atrial fibrillation BPH (benign prostatic hyperplasia) HTN (hypertension) Surgical History Hx of tonsillectomy Hx of colonoscopy History of lumbar laminectomy (1984) History of total right hip replacement (09/2011) History of carpal tunnel surgery of left wrist (2010) H/O cardiac radiofrequency ablation (03/14/24) Social History household members: children Smoking Status: Never smoker alcohol intake: current Assessment & Plan Assessment & Plan narrative: 1. Paroxysmal atrial fibrillation with RVR, improved. . - continue home diltiazem 180 mg daily and propafenone 225 mg BID for now - monitor with tele, converted to sinus rhythm shortly after arrival to hospital floor. - ACS ruled out, negative troponin, improvement in symptoms with rate control, EKG with non-specific changes. - Previous stress testing 01/02/23 was normal at [facility]. Last TTE 01/07 was EF 60-65% with no valvular abnormalities. - replete Mg and potassium, goal Mg >2 and potassium level of 4. Ordered 60 of potassium repletion and 2g Mg repletion now. - coumadin per pharmacy once okay per orthopedics team. - suspect combination of volume loss from surgery, and electrolyte abnormalities. now s/p 3L of fluid boluses with improvement. 2. CHEN, present on admission and stable. - management with respiratory therapy. 3. HTN, present on admission and stable. - continue home medications of chlorthalidone, diltiazem, and lisinopril. 4 HLD, present on admission and stable. - continue home atorvastatin 40 mg. 5. Hypomagnesemia, and hypokalemia, present on admission and improved. - repleted as noted above - continue home potassium 40 meQ daily. 6. S/p L total arthroplasty, , present on admission and improving. - PT/OT okay to start PLAN: RVR resolved. Medical stable for discharge per orthopedics. Code: Full, surrogate is patient's daughter DVT: per primary service, resume patient's warfarin per orthopedics team Time-Based Coding :: [TOTAL MINUTES] spent with patient and on the chart (including review of chart, obtaining history, exam, reviewing outside data, placing orders, documenting exam and treatment plan, and counseling patient) on [DATE]. Quality VTE Deep Vein Thrombosis/Pulmonary Embolism Present on Admission: No
[2024-08-20 08:00] VITALS: BP 115/59; PULSE 80; RESP 16; TEMP 36.2; O2SAT 95
--- NOTE | 2024-08-20 08:11 | P.DS_ITS ---
History of Present Illness History of Present Illness Date Patient Seen: 08/20/24 Time Patient Seen: 07:45 Chief complaint: Left DELONTE Narrative: The patient has had progressively worsening left hip pain with radiographic changes consistent with arthritis. Non-operative management has failed and the patient has requested total hip replacement. The risks, benefits and alternatives to surgery were discussed with the patient prior to proceeding. Risks discussed included, but were not limited to, failure to relieve pain, leg length discrepancy, dislocation, stiffness, infection, nerve damage, deep venous thrombosis, pulmonary embolism, stroke, coma, heart attack, permanent paralysis and , as well as the potential need for eventual revision of the prosthetic. Discharge Providers Provider Discharge Date: 08/20/24 Primary care physician: Dillon Zheng MD Consults: 08/19/24 06:00 Consult to Anesthesiology Routine Comment: Consulting Provider: Anesthesiologist Reason for consultation: Regional block for post operative pain control 08/19/24 12:40 Consult to Discharge Planning Routine Comment: Consult to Occupational Therapy Evaluate & Treat Comment: Physician Instructions: Evaluate and treat Consult to Physical Therapy Evaluate & Treat Comment: Physician Instructions: post op DELONTE protocol 08/19/24 12:49 Consult to Hospitalist Service Routine Comment: Consulting Provider: Javon Hinson Reason for consultation: A-fib in post op Has provider been notified: Yes Discharge provider: Vidal New PA-C Summary Hospital Course Discharge Diagnosis: left hip OA Hospital Course: Procedure: Left total hip arthroplasty anterior approach Same procedure as scheduled: Yes Surgeon: Liya Carranza Panel Sewer: Raulito Dumont Anesthesia Type: General and Spinal Operative Notes Findings: Severe left hip OA, adequate stability Closure Type: primary Specimen(s): none sent Prosthetic devices, grafts, tissues, transplants, or devices: Carranza and nephew R3 size 52, neutral poly liner,one 6.5 mm screw, polar stem size 1 standard offset with collar, 36 x +0 femoral head Estimated Blood Loss (mL): 250 Blood products transfused: none Status at Discharge Cognitive/behavioral status at discharge: oriented Functional status at discharge: uses cane/walker Time Spent with Patient Time spent: Less than 30 minutes Exam Vital Signs (past 8 hours): - 08/20/24 00:35 Temperature 97.2 F L Pulse Rate 62 Respiratory Rate 15 Blood Pressure 135/71 Pulse Oximetry 97 Oxygen Delivery Method Room Air Oxygen Flow Rate 0 Narrative Exam Narrative: Patient found resting comfortably in bed. Has localized pain at the surgical site as expected postop 1 day. No new numbness or tingling down either lower extremities. Patient was able to ambulate with assistance around the hospital floor. 5/5 strength in hip flexors, quadriceps, hamstrings, DF, PF, EHL bilaterally. Sensation to light touch intact throughout BLE. Calves soft, compressible, nontender. Dressing placed intraoperatively CDI. Resp Effort & Inspection: normal respiratory effort and able to speak in complete sentences Objective Labs 08/20/24 04:39 08/20/24 04:39 Labs: Laboratory Results - last 24 hr 08/19/24 08/20/24 12:07 04:39 WBC 11.1 H RBC 4.43 L Hgb 14.2 13.0 L Hct 40.7 L 37.0 L MCV 91.8 MCH 32.2 MCHC 35.0 RDW 14.1 Plt Count 202 Neut % (Auto) 94.7 H Lymph % (Auto) 3.9 L [place] % (Auto) 1.0 L Eos % (Auto) 0.0 L Baso % (Auto) 0.4 Neut # (Auto) 66101 H Lymph # (Auto) 400 L [place] # (Auto) 100 Eos # (Auto) 0 Baso # (Auto) 0 PT 12.4 INR 1.1 Sodium 136 L 135 L Potassium 3.5 3.7 Chloride 104 103 Carbon Dioxide 25 28 BUN 15 15 Creatinine 0.79 0.85 Estimated GFR > 60 > 60 BUN/Creatinine Ratio 19.0 17.6 Glucose 150 H 155 H Calcium 8.7 8.5 Magnesium 1.8 2.0 Total Bilirubin 0.8 AST 40 ALT 28 Alkaline Phosphatase 80 Troponin I < 0.012 Total Protein 6.4 Albumin 3.8 Globulin 2.6 Albumin/Globulin Ratio 1.5 [facility] Medical History (Updated 08/13/24 @ 14:00 by Julianna Diego RN) Normal cardiac ejection fraction Heart murmur A-fib (2015) History of anticoagulant therapy CHEN on CPAP History of chest pain History of cardioversion (07/30/22) Paroxysmal atrial fibrillation BPH (benign prostatic hyperplasia) HTN (hypertension) Surgical History (Updated 08/06/24 @ 13:43 by Rand Cerrato RN) Hx of tonsillectomy Hx of colonoscopy History of lumbar laminectomy (1984) History of total right hip replacement (09/2011) History of carpal tunnel surgery of left wrist (2010) H/O cardiac radiofrequency ablation (03/14/24) Social History household members: children Smoking Status: Never smoker alcohol intake: current Discharge Assessment & Plan Assessment and Plan Assessment: Status post left hip total arthroplasty Plan of Treatment: Discharge to home. Spoke with hospitalist patient is medically cleared to be discharged today. Anterior hip precautions. Patient will restart warfarin 5 mg today for DVT prevention. Patient has already been prescribed postoperative medications instructed in their use. Baseline pain control with acetaminophen 500 mg q.4 hours PRN. Initiate postoperative physical therapy within the next 5-10 days. Follow up in clinic in 2 weeks for wound check. Discharge Plan Discharge Plan Patient Disposition: Home Discharge orders & Medications Discharge Orders: Discharge (Order); Ordered 08/20/24 Ordered By: Vidal New Prescriptions: Continued terazosin 5 mg capsule 5 mg PO DAILY atorvastatin 40 mg tablet 40 mg PO DAILY acetaminophen [Tylenol] 325 mg Tablet 650 mg PO DAILY diltiazem HCl [Cartia XT] 180 mg capsule,extended release 24hr 180 mg PO DAILY chlorthalidone 25 mg tablet 25 mg PO DAILY potassium chloride 20 mEq tablet,ER particles/crystals 40 meq PO DAILY warfarin 5 mg tablet 5 mg PO DAILY Rx Instructions: No dose on . lisinopril 40 mg tablet 40 mg PO DAILY propafenone 225 mg capsule,extended release 12 hr 225 mg PO Q12H Follow up/Referrals: Dillon Zheng MD [Primary Care Provider] - Raulito Dumont PA-C [Advanced Radar Air Traffic Controller] - 09/02/24 2:20 pm (09/02 @ 2:20 with Fern FLOWERS @ [facility] please arrive 15 min prior to your scheduled appointment time ) Diet/Activity/Treatments Diet: Diet as Tolerated Activity: Ambulate multiple times a day. Use a cane or walker as needed. Full weight on leg. Cold/Heat Therapy: Use ice multiple times a day. Skin/Wound/Dressing Care Skin care: Leave dressing on. Okay to shower Report to your healthcare provider any signs of infection, such as:: chills, fever, night sweats, unusual drainage and unusual redness Dressing: Leave dressing in place until follow up in office. No bathing or otherwise soaking incision. Call the office if the dressing becomes saturated inside. Visit Report/Discharge Packet Stand Alone Forms: Patient Portal/API Discharge Data Primary Care Provider: Dillon Zheng Attending Provider: Liya Carranza VTE Deep Vein Thrombosis/Pulmonary Embolism Present on Admission: No
[2024-08-20] MEDS: PROPAFENONE 225 MG 225 EACH PO (09:29)
[2024-08-20] MEDS: CHLORTHALIDONE 25 MG TABLET PO (09:29)
[2024-08-20 09:30] VITALS: BP 156/76; PULSE 77
[2024-08-20] MEDS: DOCUSATE 100 MG CAPSULE PO (09:30)
[2024-08-20] MEDS: TERAZOSIN 5 MG CAPSULE PO (09:30)
[2024-08-20] MEDS: POTASSIUM CHLORIDE 20 MEQ TAB 40 MEQ PO (09:30)
[2024-08-20] MEDS: ATORVASTATIN 20 MG TABLET 40 MG PO (09:30)
[2024-08-20] MEDS: dilTIAZem CD 180 MG CAP PO (09:30)
[2024-08-20] MEDS: lisinopriL 20 MG TABLET 40 MG PO (09:30)
--- NOTE | 2024-08-20 09:30 | PT.IPTN ---
Current Diagnoses Unilateral primary osteoarthritis, left hip (08/19/24) Surgery Performed Operation Date: 08/19/24 07:45 Actual Procedures p Total Hip Arthroplasty/Anterior Approach(Left) - Liya Carranza MD Physical Therapy Treatment Note M2 PT-IP Current Condition Start: 08/19/24 16:42 Freq: NEEDED Status: Active Protocol: Document 08/19/24 15:55 AB (Rec: 08/19/24 16:54 AB [id number]) Physical Therapy Current Condition Current Condition Evaluation Date 08/19/24 Treatment Diagnosis s/p L DELONTE anterior; difficulty in walking Onset Date 08/19/24 M3 PT-IP Subjective Start: 08/19/24 16:42 Freq: NEEDED Status: Active Protocol: Document 08/20/24 10:06 TS (Rec: 08/20/24 10:12 TS [id number]) Subjective Physical Therapy Visit Type Type Treatment Note Visit Start Time 09:30 Visit Stop Time 09:45 Number of FLOOR TRADER Visits 1 Physical Therapy Visit Comments Patient Comments Pt agreeable to PT. Therapy Pain Assessment Pain When Pain Assessed At Rest Pain Present Pain Present Pain Reported M4 PT-IP Mobility and Gait Start: 08/19/24 16:42 Freq: NEEDED Status: Active Protocol: Document 08/20/24 10:06 TS (Rec: 08/20/24 10:12 TS [id number]) PT-Bed Mobility Assessment Rolling Level of Assist Standby Assistance Supine to Sit Supine to Sit Standby Assistance Sit to Supine Sit to Supine Standby Assistance PT-Transfer Assessment Sit to and From Stand Sit to and from Stand Contact Guard Assistance,1 Person Assistance,Use of Upper Extremities Equipment Transfer Assistive Device Gait Belt,Front Wheeled Walker Comments Mobility Comments Supine to sit SBA. STS with FWW SBA. He ambulates ~200' with FWW. He perofrms steps x3 with B handrail assist. Pt ambualtes back to the room, was left in restroom. Gait Assessment Gait Gait Assistance Required: Standby Assistance Distance (Feet) 200 Able to Maintain Weight Bearing Status Yes During Gait Assistive Devices Assistive Device Gait Belt,Front Wheeled Walker Orthotic/Prosthetic Devices or Brace: No Gait Deviations General Gait Pattern Decreased Stride Length, Decreased Feet Clearance Factors Limiting Gait Function Factors Limiting Gait Function Decreased Activity Tolerance, Decreased Strength,Limited Range of Motion,Pain,Poor Balance,Poor Safety Awareness Stair Climbing Assessment Evaluation Level of Assist On Stairs Standby Assistance Devices Stair Climbing Assistive Devices Left Railing,Right Railing Technique/Endurance Stair Climbing Direction Ascend and Descend Stair Climbing Technique Step Over Step Number of Steps Climbed 3 PT-Balance Assessment Sitting Balance and Reactions Static Sitting Balance Ability Normal Dynamic Sitting Balance Ability Good Standing Balance and Reactions Static Standing Balance Ability Good Dynamic Standing Balance Ability Fair Device Used FWW M5 PT-IP Objective Assessments Start: 08/19/24 16:42 Freq: NEEDED Status: Active Protocol: Document 08/19/24 15:55 AB (Rec: 08/19/24 16:54 AB [id number]) Orientation Orientation/Cognition Level of Alertness Alert Orientation Name,Place,Situation Language Function Ability Hard of Hearing Safety Awareness Decreased Safety Awareness Memory Description No Deficits Noted Gross Range of Motion Lower Extremity ROM Assessment Within Functional Limits Strength Lower Extremity Strength Assessment Left Impaired Hip 3+/5 Knee 4/5 Coordination Assessment Gross Coordination Gross Coordination WNL Sensation Assessment Sensation Gross Sensation WNL Muscle Tone Muscle Tone WNL Yes M6 PT-IP Treatment Start: 08/19/24 16:42 Freq: NEEDED Status: Active Protocol: Document 08/20/24 10:06 TS (Rec: 08/20/24 10:12 TS [id number]) Physical Therapy Treatment Education Education Provided Precautions,Weight Bearing Status,Post-Op Packet,Safety M7 PT-IP Assessment and Plan Start: 08/19/24 16:42 Freq: NEEDED Status: Active Protocol: Document 08/20/24 10:06 TS (Rec: 08/20/24 10:12 TS [id number]) PT Summary Assessment and Plan Potential Rehabilitation Potential Fair Summary Impairments Pain,ROM,Strength,Balance, Coordination,Sensation,Tone, Cognition,Bed Mobility, Transfers,Gait,Activity Tolerance Progress Towards Goals Progressing Toward Goals Assessment Summary Pt is doing well with his mobility. He is SBA for all mobility. He progresed gait to ~200' and stairs to x3. PT is recommending pt return home with assist. Goals Bed Mobility Goal Independent Transfer Goal Independent,Front Wheeled Walker Gait Goal Independent,Front Wheel Walker Gait Distance 200 Other Goals up/down 3 steps L rail ascending SBA Days to Meet Goals 5 Frequency of Treatment Frequency Of Treatment Twice a Day Treatment Plan Physical Therapy Treatment Plan Bed Mobility Training,Transfer Training,Gait Training, Therapeutic Exercise,Balance Retraining,Post Op Education, Discharge Planning,Hot or Cold Pack,Neuromuscular Re-ed, Coordination Retraining,Manual Therapy Precautions Anterior Hip Precautions No Hip Extension,No Hip External Rotation Weight Bearing Status Weight Bearing Status Weight Bear as Tolerated Allowed Weight Bearing Amount (enter % LLE WBAT or #) (%) Recommendations To Nursing Amount of Assist Needed 1 Person Assist Discharge Recommendations PT Discharge Recommendations Home with Assistance, Outpatient PT Transportation Needs at Discharge Private Vehicle
[2024-08-20] MEDS: WARFARIN 5 MG TABLET PO (09:31)
[2024-08-20] MEDS: OXYCODONE IR 5 MG TABLET PO (10:46)
--- NOTE | 2024-08-20 11:10 | PC.NURSE ---
Pt requesting to discharge prior to lunch and said his ride will be here around 1130. Pt was given discharge instructions and pt education all questions answered, IV removed, discharge packet signed and pt is dressed and will call for help when ride arives
--- NOTE | 2024-08-20 11:55 | PC.NURSE ---
pt has all belongings, meds from pharm, pt wheeled down by INSPECTOR BICYCLE, to ride home with family
--- NOTE | 2024-08-20 13:30 | CM.DANOTE ---
B DCP Assessment note pt is a 64yo M POD1 planned left total hip with Dr. Carranza PCP Dillon Zheng Payer out of state [employer] and self pay NURSING INFORMATICS ANALYST reviewed EMR. per chart review, pt lives in [facility] with adult children. IADLs/ADLs besides those caused by his hip pain. DME=walker/cane/handbag framer. one step to enter. PT/OT=home with assistance. Per RN report, no obvious CM needs. Pt left with family prior to being seen by this NURSING INFORMATICS ANALYST P: home with family today and OP f/u, no CM needs. CM team will continue to follow as needed MIGUEL Dudley Discharge Planning/Care Management CM Discharge Assessment Start: 08/20/24 13:28 Freq: Status: Active Protocol: Document 08/20/24 13:28 SL (Rec: 08/20/24 13:30 [id number]) Discharge Planning Assessment Assigned Dray Truck Driver MIGUEL Rojo DPOA/Assigned Designee Name emanuel Oates Contact Information [phone] Advance Directives? No History Provided By Patient Prior Living Arrangements House Household Members children Independent with ADL's Yes Is patient alert and oriented? Yes Needs Assistance With Home Chores / Shopping DME Already Rented / Owned FWW / Walker,Cane Discharge Plan Home Referrals Initiated None needed Review Status In Process Please Provide Date Initial DC 08/20/24 Assessment Was Performed Next Review Type Continued Stay Review Pre-Anesthesia Assessment Start: 08/06/24 13:32 Freq: Status: Discharge Protocol: Document 08/06/24 13:33 CAB (Rec: 08/06/24 14:03 CAB [id number]) Pre-Anesthesia Assessment PAC Comment 08/13/24 Phone assessment (LB) Patient Information Reviewed Via Phone Assessment Assessment Completed With Patient Diagnostic Results CBC,EKG,PT/INR,Urinalysis Comment 07/29/24 Outside results. Primary Care Provider Dillon Zheng Seen Specialist in Last 12 Months Yes Specialist Seen Allergist/Immunologist Physician,Orthopedist Primary Language Hungarian Preferred Language Hungarian Respiratory Equipment Assistant Required No Height 167.64 cm Weight 92.986 kg Body Mass Index (BMI) 33.0 Hearing Ability Normal Visual Assist Glasses Dentition Type Teeth, Natural Present Other Aids No Hx Anesthesia Reactions Yes: PONV. Hx Family Anesthesia Reaction No Hx Malignant Hyperthermia No Hx Blood Transfusions No Anesthesia Review Requested No Pen Rider No alcohol intake current alcohol intake frequency 0-2 drinks per day Smoking Status Never smoker Substance Use Type does not use Pain Present Pain Reported Comment Left hip. Musculoskeletal Symptoms Difficulty Walking,Joint Pain History of Falling (Recent or History of No ) Patient is completely paralyzed or No completely immobile Mental Status Oriented to own ability Comment Will bring walker. Is patient on oxygen? No Does patient have AGUILA/SOB No: I can g Hx Sleep Apnea Yes CPAP/BIPAP use prescribed and used routinely Currently Taking a Beta Johnson No Can You Climb a Flight of Stairs Without No SOB Hx Chest Pain Yes Hx SOB Yes Hx Syncope or Dizziness Yes Anti-Coagulant Therapy Yes: Warfarin - advised to hold 4 days prior to procedure by Dr Harding. Has a Allergist/Immunologist Physician Yes: Visit 04/10/24 Allergist/Immunologist Physician name Dr. Harding @ [facility] Cardiac Testing Yes: Echo and stress test . Hx Pacemaker/ICD No Cardiac Clearance Received Yes Dysphagia No Urinary Catheter Present No Hx Urinary Self Catheterization No Diabetes No Hx Drug Resistant Organism No Presence of External or Internal Medical Yes: Right hip. Devices Have you had any close contact with No someone diagnosed with COVID-19? Are you experiencing any of these No symptoms symptoms? Comment Denies covid last 2 months. Lives With children Current Living Arrangements House Number of Floors (Floors) One Floor Number of Stairs To Enter/Railing? 3 stairs with railing to enter . Support System Child/Children Does the Patient Have Assistance After Yes Surgery Patient Discharge Plan Description Return Home Additional comment Advised same day surgery. Feels Safe in Current Environment Yes Do you have a plan to hurt yourself or No Plan others? Emergency Contact Name Génesis Sanchez - father Иван Sweet - daughter Emergency Contact [phone] Advance Directives? No PAC Instructions Assistance for 24 hours post- op,Bring CPAP/BIPAP,Durable medical equipment,Medications to take/avoid,Nasal antibiotic ,No ETOH/petroleum product on skin DOS,NPO,Post-op transportation,Sensory aids, Sturdy shoes/comfortable clothes,Do not bring valuables and remove jewelry
== END 2024-08-20 11:59 | disposition home or self-care (01) ==
LOC: OR 11:39 → AC 11:40
PROVIDERS: Internal Medicine; PCP Internal Medicine; Referring Provider Orthopaedic Surgery; Visit Provider Orthopaedic Surgery
PROC: (CPT 27130; principal; 2024-08-19 07:45)
DX: M16.12 Unilateral primary osteoarthritis, left hip (principal); G47.33 Obstructive sleep apnea (adult) (pediatric); I48.91 Unspecified atrial fibrillation; Z79.01 Long term (current) use of anticoagulants; M25.752 Osteophyte, left hip
CPT/HCPCS: 27130; 36415; 73502; 73503; 76000; 80048; 80053; 83735; 84484; 85014; 85018; 85025; 85610; 93005; 93010; 97162; 97165; 97530; C1776; C9290; J0171; J0690; J1100; J2250; J2405; J2704; J3010; J3475